=== PATIENT | female | born 1995 | race African-American/Black ===

== ENCOUNTER 2024-06-11 12:51 | Emergency (ER) | payer SELFPAY ==
[2024-06-11 13:08] VITALS: BP 99/53; PULSE 82; RESP 18; TEMP 36.6; O2SAT 100
[2024-06-11 13:40] LABS: EDUAAPPEAR Cloudy; EDUABILI Negative (Negative); EDUABLOOD Negative (Negative); EDUACOLOR1 Yellow; EDUAGLUCOSE Negative (Negative); EDUAKETONE Negative (Negative); EDUALEUKO Negative (Negative); EDUANITRATE Negative (Negative); EDUAPROTEIN Negative (Negative); EDUASPGRAVITY 1.025; EDUAUROBILI 0.2
--- NOTE | 2024-06-11 14:08 | ED.GENADULT ---
HPI - General Adult General Chief complaint: Urogenital-Female Stated complaint: Urinary Problem Source: patient Mode of arrival: ambulatory Limitations: no limitations History of Present Illness HPI narrative: Patient presents for evaluation of pelvic pain and vaginal discharge. Symptom onset yesterday. She reports the discharge is being white in appearance. She states that the pelvic pain is cramping and she rates it 5/10 severity, constant. She denies any dysuria, urinary frequency, urgency, hesitancy, hematuria other urinary symptoms. No fever chills, nausea, vomiting. Last menstrual period last week. She is sexually active with a male partner. She is not on contraception. Related Data Allergies Allergy/AdvReac Type Severity Reaction Status Date / Time No Known Allergies Allergy Verified 06/11/24 13:10 Review of Systems Review of Systems: CONSTITUTIONAL: Denies fever, chills, or sweats. EYES: Denies visual changes, redness, or discharge. ENT: Denies rhinorrhea, congestion, sore throat, or otalgia. CARDIOVASCULAR: Denies chest pain, palpitations, or edema. RESPIRATORY: Denies cough or dyspnea. GASTROINTESTINAL: Denies abdominal pain, nausea, vomiting, or diarrhea. GENITOURINARY: Reports white vaginal discharge and pelvic pain. Denies urinary urgency, frequency, hesitancy, dysuria, hematuria. SKIN: Denies rash or itching. MUSCULOSKELETAL: Denies back pain, joint pain, or myalgia. NEUROLOGIC: Denies headache, numbness, dizziness, or weakness. PSYCHIATRIC: Denies anxiety or depression. [facility] Past Medical History Medical History No pertinent past medical history Surgical History Surgical History No pertinent past surgical history Family History Family History Mother Family history non-contributory Social History Social History Smoking status: Never smoker Alcohol intake: never Substance use: never Living arrangements: with family Gender identity (if verbalized by the patient): Female Sexual Orientation (if Verbalized by the Patient): Straight or Heterosexual Spiritual care concerns: No Exam Narrative: GENERAL: Well-appearing, well-nourished, and in no acute distress. HEAD: Normocephalic, atraumatic. EYES: PERRLA and EOMI. ENT: Nares clear, no rhinorrhea or epistaxis. Mucous membranes moist. Oropharynx without tonsillar hypertrophy exudate or other lesions. Bilateral TMs pearly dickson nonbulging NECK: Supple. No adenopathy or masses. No carotid bruits or JVD CHEST: Clear to auscultation. No respiratory distress. No wheezes rales or rhonchi HEART: Regular rate and rhythm. No murmur heard. Normal peripheral pulses. ABDOMEN: Soft, tenderness in suprapubic region, nondistended, normal active bowel sounds. GENITAL: No external genital lesions. Right adnexal tenderness. No left adnexal tenderness. No CMT. There is small to moderate amount of milky white discharge in the vaginal vault. EXTREMITIES: Normal range of motion. No edema. SKIN: Warm, dry, no rash. NEURO: No focal deficits. Alert and oriented x3. PSYCH: Normal mood and affect. Course Course Emergency Course: This is a 28-year-old female who presented for evaluation of pelvic pain and white vaginal discharge. She had unilateral adnexal tenderness on exam. I recommended she go to the hospital for ultrasound. She is agreeable to this plan. Her facility of choice is [facility]. I contacted [facility] and spoke with RN, Franca, in the emergency department and she indicates that Dr. Cesar will accept pt for transfer there. Patient was updated throughout her stay here and was in agreement with plan of care, including plans for transfer. Level of Care: Express Care Visit Giselle
[2024-06-11 21:54] LABS: Trichomonas Vag PCR NOT DETECTED (NOT DETECTE)
[2024-06-11 22:17] LABS: Chlamydia trachomatis NOT DETECTED (NOT DETECTE); Neisseria gonorrhoeae PCR NOT DETECTED (NOT DETECTE)
[2024-06-13 14:28] LABS: Bacterial Vaginosis NEGATIVE (NEGATIVE)
== END 2024-06-11 14:30 | disposition short-term general hospital (02) ==
PROVIDERS: Emergency Provider Nurse Practitioner
DX: R10.2 Pelvic and perineal pain (principal)
CPT/HCPCS: 81003; 81513; 87491; 87591; 87661; 99213; G0463